=== PATIENT | male | born 1995 | race Caucasian/White ===

== ENCOUNTER 2024-05-10 00:59 | Emergency (ER) | payer OTHER ==
[2024-05-10] MEDS: Famotidine 20 MG Tab PO ONE (01:21)
[2024-05-10] MEDS: Ondansetron 4 MG Tab.DIS PO ONE ×2 (01:21→02:00)
[2024-05-10] MEDS: Aluminum Hydroxide/Magnesium Hydroxide/Simethicone Susp 30 ML Cup PO ONE (01:21)
== END 2024-05-10 02:03 | disposition home or self-care (01) ==
LOC: MW.ED 00:59
DX: R11.2 Nausea with vomiting, unspecified (principal); Z75.8 Other problems related to medical facilities and other health care
CPT/HCPCS: 93005; 99284; A9270; 93010; 99283